=== PATIENT | male | born 1970 | race Caucasian/White ===

== ENCOUNTER 2018-02-26 14:55 | Outpatient (CLI) | payer OTHER ==
[~2018-02-26 14:55] MED LIST: Gadobenate Dimeglumine 529 MG/1 ML (20ML VIAL) ONE
--- NOTE | 2018-02-26 16:16 | MRI ---
MRI OF THE LUMBAR SPINE WITHOUT AND WITH CONTRAST: 02/26/18 COMPARISON: None. HISTORY: Low back pain for nine months with pain going down the right leg. History of back surgery. TECHNIQUE: Multiplanar and multisequence MRI images were obtained of the lumbar spine without and with IV contr ast. FINDINGS: The vertebral bodies and intervertebral discs demonstrate normal height and alignment without fractur e or subluxation. End plate degenerative changes are seen without surrounding L4-5 and L5-S1. The co nus medullaris terminates normally at L1. The prevertebral soft tissues are unremarkable. The patient appears to have had a left laminectomy at L5-S1. There is a small amount of enhancement in the annalisa ectomy site and along the left aspect of the central canal at this level which likely represents post operative change. T12-L1: Unremarkable. L1-2: Unremarkable. L2-3: Unremarkable. L3-4: A small generalized concentric disc bulge is seen. Mild bilateral posterior facet arthrosis. Mi ld central canal stenosis. Moderate bilateral neural foraminal stenosis. L4-5: There is a very large left paracentral protrusion. This causes severe central canal stenosis a nd compresses the nerve roots to the left and posterior. The protrusion impresses upon the right L5 n erve root. Mild bilateral posterior facet arthrosis. Mild bilateral neural foraminal stenosis, right greater than left. L5-S1: A small disc osteophyte complex is seen. Mild to moderate bilateral posterior facet arthrosis. Mild central canal stenosis. Moderate left and mild to moderate right neural foraminal stenosis. IMPRESSION: 1. Degenerative changes of the lumbar spine as above. There is a large disc protrusion/extrusion at L4-5 which impresses upon the right L5 nerve root and causes displacement of the nerve roots with in the central canal to the left as above. 2. Postsurgical changes at L5-S1 as above. POS: MARY
== END 2018-02-26 14:56 | disposition home or self-care (01) ==
LOC: TBSIIMAG 14:55
PROVIDERS: ATTEND Neurological Surgery
DX: M47.26 Other spondylosis with radiculopathy, lumbar region (principal); Z98.1 Arthrodesis status
CPT/HCPCS: 72158; A9579

== ENCOUNTER 2018-03-04 08:39 | Day surgery (SDC) | payer OTHER ==
[2018-03-01 12:53] VITALS: BMI 32.5
[2018-03-04] MEDS ORDERED: CEFAZOLIN/Water 2 GM/20 ML SYRINGE ONE (09:24)
[2018-03-04] MEDS ORDERED: Midazolam HCl 2 mg/2 ml Vial ONE ×2 (09:42→12:45)
[2018-03-04 09:53] LABS: #Eosinphils 0.1 thou/uL (0.0-0.7); #Lymphocytes 1.7 thou/uL (1.20-3.40); #Monocytes 0.5 thou/uL (0.11-0.59); #Neutrophils 3.1 thou/uL (1.40-6.50); %Basophils 0.7 % (0.0-1.0); %Eosinophils 2.3 % (0.0-10.0); %Lymphocytes 31.1 % (21.0-51.0); %Monocytes 9.2 % (0.0-10.0); %Neutrophils 56.7 % (42.0-75.0); Hemoglobin 14.4 g/dL (14.0-18.0); Mean Corpuscular HGB CONC 35.2 g/dL (32.0-36.0); Mean Corpuscular Hemoglobin 31.8 pg (27.0-31.0); Mean Corpuscular Volume 90.2 fl (80.0-94.0); Mean Platelet Volume 8.8 fL (7.4-10.4); Platelet Count 190 thou/uL (130-400); RBC Distribution Width 11.8 % (11.5-14.5); Red Blood Cell (RBC) Count 4.54 mill/uL (4.70-6.10); White Blood Cell (WBC) Count 5.4 thou/uL (4.8-10.8)
[2018-03-04 10:07] LABS: Anion Gap 10 mmol/L (10-20); BUN (Urea Nitrogen) 20 mg/dL (8.9-20.6); Calc. Creatinine Clearance 130 mL/min (70-130); Calcium 9.5 mg/dL (7.8-10.44); Carbon Dioxide 26 mmol/L (22-29); Chloride 110 mmol/L (98-107); Estimated GFR-MDRD 81; Glucose 90 mg/dL (70-105); Potassium 4.2 mmol/L (3.5-5.1); Sodium 142 mmol/L (136-145)
[2018-03-04] MEDS ORDERED: Sodium Chloride 0.9% 10 ML ONE (12:14)
[2018-03-04] MEDS ORDERED: Fentanyl 100 MCG/2 ML VIAL ONE (12:46)
--- NOTE | 2018-03-04 13:45 | OP ---
DATE OF PROCEDURE: 03/04/2018 SURGEON: Red Corrigan M.D. ASSISSTANT: John Steinberg PA-C PROCEDURE: Right L4-L5 microdiskectomy. PROCEDURE IN DETAIL: The patient was brought into the operating room and intubated. He was rolled i n the prone position on gel-filled chest rolls. Incision made exposing right L4-L5 and our level was confirmed by x-ray. We performed a right L4-L5 hemilaminectomy, removed the yellow ligament and jocelynn eath this identified a huge right-sided disk herniation. This was removed in one large fragment and several smaller fragments. A complete decompression of right L5 was achieved. The wound was then ex tensively irrigated, immaculate hemostasis was secured. Vancomycin powder was applied and the wound was closed in anatomic layers.
[2018-03-04] MEDS ORDERED: Morphine 4 MG/ML VIAL ONE (15:06)
[2018-03-04] MEDS ORDERED: HYDROcodone/Acetaminophen 10/325 mg Tablet ONE (15:35)
[2018-03-04] MEDS ORDERED: Lidocaine 1% PF 5 ML VIAL ONE (16:17)
[2018-03-04] MEDS ORDERED: ePHEDrine/0.9% NaCl/PF SYRINGE 50 mg/10 ml ONE (16:17)
[2018-03-04] MEDS ORDERED: Glycopyrrolate 0.2 MG/ML 5 ML SYRINGE ONE (16:17)
[2018-03-04] MEDS ORDERED: Dexamethasone 20 MG/5 ML VIAL ONE (16:17)
[2018-03-04] MEDS ORDERED: PHENYLEPHRINE-NS 100 MCG/ML 10 ML SYRINGE ONE (16:17)
[2018-03-04] MEDS ORDERED: Ondansetron HCl/PF 4 MG/2 ML Vial ONE (16:17)
[2018-03-04] MEDS ORDERED: PROPOFOL 200 MG/20 ML VIAL ONE (16:17)
--- NOTE | 2018-03-10 08:37 | EKG ---
Test Reason : PREOP Blood Pressure : / mmHG Vent. Rate : 049 BPM Atrial Rate : 049 BPM P-R Int : 168 ms QRS Dur : 090 ms QT Int : 424 ms P-R-T Axes : 029 027 023 degrees QTc Int : 383 ms Marked sinus bradycardia Abnormal ECG No previous ECGs available Confirmed by MARLEE CARY MD ([id number]) on 03/10/2018 8:36:55 AM Referred By: HAROON Confirmed By:MARLEE CARY MD
== END 2018-03-04 16:15 | disposition home or self-care (01) ==
LOC: SDC 08:39
PROVIDERS: ATTEND Neurological Surgery
PROC: 0ST20ZZ Resection of Lumbar Vertebral Disc, Open Approach (ICD-10-PCS; principal; 2018-03-04)
PROC: 01NB0ZZ Release Lumbar Nerve, Open Approach (ICD-10-PCS; principal; 2018-03-04)
DX: M51.16 Intervertebral disc disorders with radiculopathy, lumbar region (principal); I10 Essential (primary) hypertension; E34.9 Endocrine disorder, unspecified; Z79.82 Long term (current) use of aspirin; Z79.890 Hormone replacement therapy; Z79.899 Other long term (current) drug therapy
CPT/HCPCS: 76001; 80048; 85025; 93005; 93010; 96374; A4216; J1100; J2001; J2250; J2270; J2405; J2704; J3010; J3370; J3490